=== PATIENT | female | born 1955 | race Caucasian/White ===

== ENCOUNTER 2017-01-06 21:06 | Inpatient (IN) | payer OTHER ==
[~2017-01-06] VITALS: Ht 175.3 cm; Wt 95.2 kg
[~2017-01-06 21:06] MED LIST: DIOVAN HCT 31 TABLET PO; NEURONTIN800 MG PO
[2017-01-07 09:32] VITALS: BP 112/66
[2017-01-07 14:17] VITALS: BP 101/59
[2017-01-07 15:45] VITALS: BP 110/71
[2017-01-07 17:59] LABS: HEMATOCRIT 39.9 % (36.0-46.0); MCH 31.4 PG (29.0-34.0); MCHC 34.6 G/DL (30.0-36.0); MCV 90.9 FL (83-99); MEAN PLAT.VOLUME 9.9 uM^3 (9.5-12.4); PLATELET COUNT 185 K/uL (156-360); RBC DIS.WIDTH-CV 12.9 % (11.8-14.6); RBC DIS.WIDTH-SD 42.5 % (39-53); RED BLOOD COUNT 4.39 M/uL (3.80-5.20); WHITE BLOOD COUNT 10.8 K/uL (4.1-10.2)
[2017-01-07 18:19] LABS: ANION GAP 7 MEQ/L (2-14); CHLORIDE 106 MEQ/L (99-109); GFR ESTIMATE (CALCULATED) > 59 mL/min/; GLUCOSE 149 mg/dL (70-99); POTASSIUM 3.1 MEQ/L (3.7-5.4); SAMPLE HEMOLYSIS CHECK 0; SAMPLE ICTERIC CHECK 0; SAMPLE LIPEMIA CHECK 0; SODIUM 142 MEQ/L (136-147); UREA NITROGEN (BUN) 15 mg/dL (9-23)
[2017-01-07 20:45] VITALS: BP 136/74
[2017-01-08] VITALS (7 sets, daily range): BP systolic 115–138; BP diastolic 62–76
[2017-01-08 07:04] LABS: HEMATOCRIT 37.3 % (36.0-46.0); MCH 30.4 PG (29.0-34.0); MCV 89.2 FL (83-99); PLATELET COUNT 203 K/uL (156-360); RBC DIS.WIDTH-CV 12.7 % (11.8-14.6); RBC DIS.WIDTH-SD 41.8 % (39-53); RED BLOOD COUNT 4.18 M/uL (3.80-5.20); WHITE BLOOD COUNT 13.3 K/uL (4.1-10.2)
[2017-01-08 07:30] LABS: ANION GAP 8 MEQ/L (2-14); CHLORIDE 103 MEQ/L (99-109); GFR ESTIMATE (CALCULATED) > 59 mL/min/; GLUCOSE 127 mg/dL (70-99); POTASSIUM 2.9 MEQ/L (3.7-5.4); SAMPLE HEMOLYSIS CHECK 0; SAMPLE ICTERIC CHECK 0; SAMPLE LIPEMIA CHECK 0; SODIUM 139 MEQ/L (136-147); UREA NITROGEN (BUN) 11 mg/dL (9-23)
[2017-01-09 04:30] VITALS: BP 110/72
[2017-01-09 06:31] LABS: MCH 31.5 PG (29.0-34.0); MEAN PLAT.VOLUME 10.3 uM^3 (9.5-12.4); PLATELET COUNT 165 K/uL (156-360); RBC DIS.WIDTH-CV 12.8 % (11.8-14.6); RBC DIS.WIDTH-SD 42.4 % (39-53); WHITE BLOOD COUNT 9.7 K/uL (4.1-10.2)
[2017-01-09 06:59] LABS: ANION GAP 6 MEQ/L (2-14); CHLORIDE 102 MEQ/L (99-109); GFR ESTIMATE (CALCULATED) > 59 mL/min/; GLUCOSE 104 mg/dL (70-99); SAMPLE HEMOLYSIS CHECK 0; SAMPLE ICTERIC CHECK 0; SAMPLE LIPEMIA CHECK 0; SODIUM 139 MEQ/L (136-147); UREA NITROGEN (BUN) 9 mg/dL (9-23)
[2017-01-09 07:01] LABS: POTASSIUM 3.5 MEQ/L (3.7-5.4)
[2017-01-09 07:02] VITALS: BP 123/65
== END 2017-01-09 09:55 | disposition home or self-care (01) | DRG 743 ==
LOC: CANRESERV 21:06 → ENRESERV 21:06 → 2SOUTH 01-07 08:43 → ENRESERV 01-07 11:20 → 2SOUTH 01-07 13:55 → 2EAST 01-07 14:13 → 2SOUTH 01-07 14:35 → 2EAST 01-09 09:55
PROVIDERS: Obstetrics & Gynecology Gynecologic Oncology
DX: D25.9 Leiomyoma of uterus, unspecified (principal); N80.0 Endometriosis of uterus; D28.2 Benign neoplasm of uterine tubes and ligaments; N83.8 Other noninflammatory disorders of ovary, fallopian tube and broad ligament; Z83.3 Family history of diabetes mellitus; Z86.010 Personal history of colon polyps; Z82.49 Family history of ischemic heart disease and other diseases of the circulatory system
CPT/HCPCS: 36415; 80048; 85027; 86850; 86900; 86901; 86920; 88305; 90686; 94799; J0690; J1100; J1170; J1650; J2250; J2405; J2710; J2765; J3010; J3480; Q0175